=== PATIENT | male | born 2000 | race Caucasian/White ===

== ENCOUNTER 2020-04-08 01:09 | Emergency (ER) | payer BC, SELFPAY ==
[2020-04-08 01:17] VITALS: BP 138/90; PULSE 98; RESP 18; TEMP 36.9; O2SAT 99; BMI 25.8
[2020-04-08] MEDS: diphenhydrAMINE HCL 25 MG TABLET PO (01:24)
--- NOTE | 2020-04-08 01:26 | ED_ITS ---
HPI - General Adult General Chief complaint: Allergic Reaction Stated complaint: ?Allergic Reaction Time Seen by Provider: 04/08/20 01:17 Source: patient Mode of arrival: ambulatory History of Present Illness HPI narrative: This is a 19-year-old male who states that he had feta cheese with pasta and boothe tomatoes at approximately 7:30 p.m. this evening and then states that afterwards he developed a burning sensation in the back of his throat in self treated with Zyrtec and a ?cold medication?. He states that he did not really feel better but decided to go ahead and laid down at approximately 9:00 p.m. and try to sleep but was unable to do so. He was then awoken by the burning sensation in the back of his throat that has persisted until his current presentation here to the emergency department. He states he took Benadryl about an hour prior to presenting to the emergency department and denies any improvement in his symptoms. Related Data Allergies Allergy/AdvReac Type Severity Reaction Status Date / Time No Known Allergies Allergy Unverified 10/24/19 19:14 [No Known Allergies*] Review of Systems Review of Systems: Pertinent positives and negatives as stated in HPI 10 point review systems is otherwise negative. PMFSH Past Medical History Source: nursing notes reviewed Medical History Anxiety Depression Seasonal allergies Social History Social History Alcohol intake: never Smoking Status: Never smoker Smoked in Last 30 Days: No Use of substances other than those prescribed or required for medical reasons: No Advance Directives: No Physical Exam Vital Signs: Vital Signs: Last Vital Signs Temp 98.4 F 04/08/20 01:17 Pulse 84 04/08/20 01:33 Resp 16 04/08/20 01:33 BP 120/79 04/08/20 01:33 Pulse Ox 99 04/08/20 01:33 Body Mass Index 25.8 VITAL SIGNS: Reviewed. GENERAL: Well developed, well nourished, in no acute distress. NOSE: Nares patent bilateral OROPHARYNX: no oral lesions noted, posterior pharynx clear and non-erythematous without noted tonsillar enlargement/erythema/exudates, no lip/tongue/posterior pharynx swelling NECK: Supple, no adenopathy LUNGS: Normal breath sounds, no stridor, no wheezing. No adventitious sounds or accessory muscle use. SpO2<99> CARDIOVASCULAR: Regular rate and rhythm without noted murmurs, no JVD or lower extremity edema. ABDOMEN: Soft, non-tender, non-distended with bowel sounds. SKIN: Inspection of the skin reveals no rashes NEUROLOGIC: Alert and oriented x 4. Course Course Course Narrative: This is a 19-year-old male with history and clinical presentation consistent with likely irritation from food items as there is no evidence of angioedema, anaphylaxis, hives. Patient was per provided with 25 mg of Benadryl and on re-evaluation states he continues to have same symptoms and was then treated with a GI cocktail. On re-evaluation patient has improved and he was encouraged to continue with [id number] Cepacol and to follow-up with his primary care provider. The time of discharge patient is not hypoxic, tachypneic, there is no facial/lip/tongue swelling, and auscultation of breath sounds are normal in nature. Discharge Plan Discharge Clinical Impression: Allergic reaction Qualifiers: Encounter type: initial encounter Qualified Code(s): T78.40XA - Allergy, unspecified, initial encounter Patient Disposition: Home, Self-Care Instructions: Food Allergy (ED) Additional Instructions: 1. Use [id number] Benadryl intermittently if you developed hives. You may consider Cepacol for additional symptom relief. 2. Please follow-up with your primary care provider for re-evaluation in next 1- 2 days. Do not hesitate to return to the emergency department should you develop any acute respiratory symptoms. Referrals: Selwyn Haynes MD [Primary Care Provider] - 2 days (Re-evaluation after patient seen in the emergency department for ?allergic reaction? after eating feta cheese. No evidence of angioedema or anaphylaxis or hives. The sensation in the back of throat was burning in nature.)
[2020-04-08 01:33] VITALS: BP 120/79; PULSE 84; RESP 16; O2SAT 99
[2020-04-08] MEDS: Lidocaine HCl Viscous 2 % 15 ML SOLUTION 10 ML MUCOUS MEM (03:44)
[2020-04-08] MEDS: Magnesium Hydrox/Alum Hydrox 30 ML ORAL.SUSP PO (03:45)
--- NOTE | 2020-04-08 03:46 | PC.NURSE ---
Pt medicated per MAR.
--- NOTE | 2020-04-08 03:48 | PC.NURSE ---
0130 GI cocktail not given by primary RN. This RN documenting against 0130 GI cocktail, medicating pt from the 0240 order. Primary RN aware. Pt ambulating to the bathroom with a steady gait.
[2020-04-08 03:58] VITALS: BP 111/76; PULSE 91; RESP 16; O2SAT 99
== END 2020-04-08 03:59 | disposition home or self-care (01) ==
PROVIDERS: Emergency Provider Student in an Organized Health Care Education/Training Program; PCP Internal Medicine
DX: T78.1XXA Other adverse food reactions, not elsewhere classified, initial encounter (principal); X58.XXXA Exposure to other specified factors, initial encounter
CPT/HCPCS: 99283; 99284; Q0163

== ENCOUNTER 2021-02-07 22:31 | Emergency (ER) | payer BC, SELFPAY ==
[2021-02-07 22:39] VITALS: BP 121/75; PULSE 150; RESP 18; TEMP 36.9; O2SAT 97; BMI 25.8
--- NOTE | 2021-02-07 22:46 | ECG_ITS ---
Test Reason : TACHYCARDIA Blood Pressure : / mmHG Vent. Rate : 115 BPM Atrial Rate : 115 BPM P-R Int : 134 ms QRS Dur : 082 ms QT Int : 308 ms P-R-T Axes : 085 098 026 degrees QTc Int : 426 ms Sinus tachycardia Rightward axis Borderline ECG When compared to the previous EKG of Vent. rate has increased Referred By: Dayna Laguna Electronically Signed By:SIVA CISSE MD
[2021-02-07] MEDS: Ondansetron ODT 4 MG TAB.RAPDIS TRANSLINGU (22:49)
[2021-02-07 23:23] LABS: Basophils Percent Auto 0.2 % (0-2); Eosinophils Percent Auto 0.1 % (0-4); Hematocrit 47.9 % (42.0-52.0); Hemoglobin 16.2 g/dl (14.0-18.0); Imm Gran Abs Auto 0.06 X10*3/uL (0.00-0.03); Imm Gran Pct Auto 0.3 % (0.0-0.4); Lymphocytes Absolute Auto 0.3 X10*3/uL (1.2-4.9); Lymphocytes Percent Auto 1.7 % (20-40); MANUAL DIFF FLAG SCAN; Mean Corpuscular HGB Conc 33.8 g/dl (31.0-36.0); Mean Corpuscular Hemoglobin 29.6 pg (27.0-33.0); Mean Corpuscular Volume 87.4 fL (80.0-98.0); Mean Platelet Volume 9.8 fL (9.4-12.4); Monocytes Percent Auto 5.2 % (2-11); Neutrophils Absolute Auto 17.4 x10*3/uL (2.0-8.3); Neutrophils Percent Auto 92.5 % (45-73); Platelet Count 242 X10*3/uL (160-400); Red Blood Count 5.48 X10*6/uL (4.60-5.80); Red Cell Distribution Width 12.7 % (11.0-16.0); SCAN SMEAR FLAG 1; White Blood Count 18.8 X10*3/uL (4.8-10.8)
[2021-02-07 23:25] LABS: SLIDE REVIEW VERIFIED
[2021-02-07] MEDS: 0.9 % Sodium Chloride 2,000 ML 999 ML IVCONT (23:39)
[2021-02-07] MEDS: Loperamide HCl 2 MG CAPSULE 4 MG PO (23:39)
[2021-02-07] MEDS: ondansetron HCL 4 MG/2 ML VIAL IVPUSH (23:39)
--- NOTE | 2021-02-07 23:47 | ED.NAVMDI ---
HPI - Nausea/Vomiting/Diarrhea General Chief complaint: Nausea/Vomiting/Diarrhea Stated complaint: Diarrhea, cant keep food down Time Seen by Provider: 02/07/21 23:16 Source: patient Mode of arrival: ambulatory Limitations: no limitations History of Present Illness HPI Narrative: Patient comes to the emergency room complaining of nausea, vomiting, watery diarrhea. Patient states that whenever he stands up he feels dizzy, lightheaded. Early this morning, patient had abdominal cramps, and shortly after started having diarrhea. Patient complaining of chills, no fever, denies URI symptoms Related Data Previous Rx's Medication Instructions Recorded loperamide 2 mg tablet 2 mg PO Q4H PRN #10 tab 02/08/21 ondansetron HCl 4 mg tablet 4 mg PO Q6H PRN #10 tab 02/08/21 (Zofran) Allergies Allergy/AdvReac Type Severity Reaction Status Date / Time No Known Allergies Allergy Verified 02/07/21 22:39 [No Known Allergies*] Review of Systems Review of Systems: Constitutional : No Weight loss, No Fever, complaining of Chills, No Night Sweats, No Fatigue, No Malaise ENT/Mouth : No Hearing loss, No Ear Pain, No Nasal Congestion, No Sinus Pain, No Hoarseness, No sore throat, No Rhinorrhea, No Swallowing Difficulty Eyes: No Eye Pain, No Swelling, No Redness, No Foreign Body, No Discharge, No Vision Changes Cardiovascular : No Chest Pain, No SOB, No Dyspnea on Exertion, No Orthopnea, No Edema, No Palpitations Respiratory : No Cough, No Sputum, No Wheezing, No Smoke Exposure, No Dyspnea Gastrointestinal : Complaining of nausea, vomiting, diarrhea, denies constipation, complaining of abdominal cramping, no black/bloody stools Genitourinary : no irregular bleeding, No Dysuria, No Urinary Frequency, No Hematuria, No Urinary Incontinence, No Urgency, No Flank Pain, No Urinary Flow Changes, No Hesitancy Musculoskeletal : No joint pain, No Myalgias, No Joint Swelling Skin : No Skin Lesions, No rash Neuro : No Weakness, No Numbness, No Paresthesias, No Loss of Consciousness, No Dizziness, No Headache Psych : No Anxiety/Panic, No Depression, No SI/HI/AH/VH, No Social Issues, Heme/Lymph: No Bruising, No Bleeding,No Lymphadenopathy Endocrine : No Polyuria, No Polydipsia, No Temperature Intolerance [facility] Past Medical History Medical History Anxiety Depression Seasonal allergies Social History Social History Alcohol intake: never Advance Directives: No Advance Directives Information Provided: Yes Physical Exam Vital Signs: Vital Signs: Last Vital Signs Temp 98.5 F 02/07/21 22:39 Pulse 150 H 02/07/21 22:39 Resp 18 02/07/21 22:39 BP 121/75 02/07/21 22:39 Pulse Ox 97 02/07/21 22:39 BMI result Body Mass Index 25.8 Const: Other: Appearance: Alert. Oriented X3. No acute distress. Well-appearing Eyes: Pupils equal, round and reactive to light. ENT: Pharynx normal. Neck: Normal inspection. Neck supple. No lymph nodes noted. No crepitus CVS: Normal heart rate and rhythm. Pulses normal. Normal S1 and S2 Respiratory: No respiratory distress. Breath sounds normal. No Wheezing. No rales Abdomen: Soft and nontender. No rigidity. No distention. Skin: Skin warm and dry. Normal skin color. Normal skin turgor. Extremities: No lower extremity edema. No lower extremity edema. No Lacerations. No Rash Neuro: Oriented X 3. No motor deficit. No sensory deficit. Moving all extermities. No slurred speech. Course Course Course Narrative: I discussed the labs with the patient, patient with transient L of normal saline, Zofran, loperamide. Although patient's white blood cell count is elevated, patient has no abdominal pain, at this time imaging is not indicated. Patient instructed to follow-up with his primary care physician and drink fluids with electrolytes. Patient tested negative for COVID MDM - Nausea/Vomiting/Diarrhea Lab Data Result diagrams: 02/07/21 22:59 02/07/21 23:00 Labs: Lab Results 02/07/21 02/07/21 02/07/21 Range/Units 22:59 23:00 23:46 WBC 18.8 H (4.8-10.8) X10*3/uL RBC 5.48 (4.60-5.80) X10*6/uL Hgb 16.2 (14.0-18.0) g/dl Hct 47.9 (42.0-52.0) % MCV 87.4 (80.0-98.0) fL MCH 29.6 (27.0-33.0) pg MCHC 33.8 (31.0-36.0) g/dl RDW 12.7 (11.0-16.0) % Plt Count 242 (160-400) X10*3/uL MPV 9.8 (9.4-12.4) fL Immature Gran % (Auto) 0.3 (0.0-0.4) % Neut % (Auto) 92.5 H (45-73) % Lymph % (Auto) 1.7 L (20-40) % [place] % (Auto) 5.2 (2-11) % Eos % (Auto) 0.1 (0-4) % Baso % (Auto) 0.2 (0-2) % Lymph # (Auto) 0.3 L (1.2-4.9) X10*3/uL [place] # (Auto) 1.0 (0.1-1.2) X10*3/uL Eos # (Auto) 0.0 (0.0-0.4) X10*3/uL Baso # (Auto) 0.0 (0.0-0.2) X10*3/uL Abs Immat Gran (auto) 0.06 H (0.00-0.03) X10*3/uL Absolute Neuts (auto) 17.4 H (2.0-8.3) x10*3/uL Absolute Nucleated RBC 0.000 (0.0-0.012) X10*3/uL Nucleated RBC % (auto) 0.0 (0.0-0.2) /100WBC Smear Tech's Comments VERIFIED Sodium 138 (135-145) mmol/L Potassium 4.4 (3.3-5.1) mmol/L Chloride 102 (96-108) mmol/L Carbon Dioxide 25 (22-29) mmol/L Anion Gap 15 (12-20) BUN 12 (9-16) mg/dL Creatinine 1.07 (0.5-1.4) mg/dL Estim Creat Clear Calc 109.2 Estimated GFR > 60 Random Glucose 127 H (60-115) mg/dL Calcium 10.5 H (8.4-10.2) mg/dL Total Bilirubin 1.0 (0.0-1.0) mg/dL Direct Bilirubin 0.3 (0.0-0.5) mg/dL AST 37 (5-37) U/L ALT 48 H (0-40) U/L Alkaline Phosphatase 83 (39-117) U/L Total Protein 8.4 H (6.5-8.0) g/dL Albumin 5.0 (3.5-5.0) g/dL COVID-19 (ROBERT) Negative (Negative) COVID-19 Clin Com See Note Discharge Plan Discharge Clinical Impression: Nausea vomiting and diarrhea Patient Disposition: Home, Self-Care Instructions: Acute Nausea and Vomiting (ED), Acute Diarrhea (ED) Additional Instructions: Please follow-up with your primary care physician tomorrow. If you have any worsening or new symptoms, please return to the emergency room or call 911 Prescriptions: New ondansetron HCl [Zofran] 4 mg tablet 4 mg PO Q6H PRN (Reason: nausea and vomiting) Qty: 10 RF: 0 loperamide 2 mg tablet 2 mg PO Q4H PRN (Reason: loose stool) Qty: 10 RF: 0
[2021-02-07 23:50] LABS: Alanine Aminotransferase 48 U/L (0-40); Alkaline Phosphatase 83 U/L (39-117); Anion Gap 15 (12-20); Aspartate Amino Transferase 37 U/L (5-37); Bilirubin Direct 0.3 mg/dL (0.0-0.5); Blood Urea Nitrogen 12 mg/dL (9-16); Calcium 10.5 mg/dL (8.4-10.2); Carbon Dioxide 25 mmol/L (22-29); Chloride 102 mmol/L (96-108); Creatinine Clr Calc Pharmacy 109.2; Estimated Glomerular Filt Rate > 60; Glucose Random 127 mg/dL (60-115); Potassium 4.4 mmol/L (3.3-5.1); Sodium 138 mmol/L (135-145); Total Protein 8.4 g/dL (6.5-8.0)
[2021-02-08 00:04] LABS: COVID-19 Test Negative (Negative)
--- NOTE | 2021-02-08 00:50 | PC.NURSE ---
Orthostatic BP: Lyin/61 HR 111 Sittin/63 HR 120 Standin/61 HR 130 Pt tolerated well. denies any dizziness. Pt states anxious
[2021-02-08] MEDS: LORazepam 1 MG TABLET PO (00:58)
== END 2021-02-08 01:45 | disposition home or self-care (01) ==
PROVIDERS: Emergency Provider Emergency Medicine
DX: R11.2 Nausea with vomiting, unspecified (principal); R19.7 Diarrhea, unspecified; Z20.822 Contact with and (suspected) exposure to COVID-19
CPT/HCPCS: 36415; 80048; 80076; 85025; 87635; 93005; 96361; 96374; 99283; 99284; J2405